=== PATIENT | male | born 1970 | race Caucasian/White ===

== ENCOUNTER 2021-11-09 05:33 | Observation (INO) | payer OTHER ==
[~2021-11-09] VITALS: Ht 182.9 cm; Wt 97.5 kg
[~2021-11-09 05:33] MED LIST: BUSPIRONE; LIPITOR20 MG PO; PAMELOR; VYTORIN
[2021-11-09 05:45] VITALS: BP 161/91
[2021-11-09] MEDS ORDERED: ADDERALL 10 MG10 MG PO (05:48)
[2021-11-09] MEDS ORDERED: NORVASC 2.5 MG2.5 M1 PO (05:48)
[2021-11-09 06:21] LABS: HEMOGLOBIN 14.7 gm/dL (14.0-18.0); NUCLEATED RBCS 0 /100WBC; RDW-CV 12.6 % (10.5-14.5)
[2021-11-09 06:23] LABS: HEMATOCRIT 43.5 % (42.0-52.0); MCHC 33.9 g/dL (28.0-37.0); MCV 85.6 fL (80.0-100.0); MPV 7.1 fl. (7.2-11.1); PLATELET COUNT* 354 thou/uL (150-400); RBC 5.09 mil/uL (4.50-6.00); WBC 13.7 thou/uL (4.0-11.0)
[2021-11-09 06:26] LABS: CREATININE 1.1 mg/dL (0.6-1.3); POTASSIUM 3.6 mmol/L (3.5-5.1)
[2021-11-09 06:30] LABS: ALBUMIN 3.9 g/dL (3.4-5.0); TOTAL BILIRUBIN 0.6 mg/dL (<0.1-1.0); TOTAL PROTEIN 7.3 g/dL (6.4-8.2)
[2021-11-09 07:48] LABS: URINE BILIRUBIN NEGATIVE (Negative); URINE BLOOD NEGATIVE (Negative); URINE CLARITY CLEAR; URINE COLOR YELLOW; URINE GLUCOSE-RANDOM NEGATIVE (Negative); URINE KETONES NEGATIVE (Negative); URINE LEUKOCYTES-REFLEX NEGATIVE (Negative); URINE NITRITE-REFLEX NEGATIVE (Negative); URINE PROTEIN TRACE (Negative); URINE UROBILINOGEN 0.2 E.U./dl (0.2-1.0)
[2021-11-09 07:55] LABS: AMP/METHAMP Negative (Negative); BARBITURATES Negative (Negative); BENZODIAZEPINES Negative (Negative); COCAINE Negative (Negative); METHADONE Negative (Negative); OPIATES POSITIVE (Negative); PCP Negative (Negative); THC POSITIVE (Negative)
[2021-11-09 07:55] LABS: ABSOLUTE BASOPHILS 0.1 thou/uL (0.0-0.2); ABSOLUTE EOSINOPHILS 0.1 thou/uL (0.0-0.7); ABSOLUTE LYMPHOCYTES 1.4 thou/uL (0.8-5.3); ABSOLUTE MONOCYTES 0.7 thou/uL (0.0-1.2); ABSOLUTE NEUTROPHILS 11.4 thou/uL (1.6-8.1)
[2021-11-09 07:56] LABS: PLATELET ESTIMATE INCREASED
[2021-11-09 11:00] VITALS: BP 144/110
--- NOTE | 2021-11-09 11:20 | EKG ---
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: MICHELE : 1970 Requested By: Lacey Blank Order Number: [id number] MD: Jorge Alberto Naranjo Measurements Intervals Adams Rate: 65 P: 68 ME: 114 QRS: 72 QRSD: 117 T: 77 QT: 401 QTc: 417 Interpretive Statements Sinus rhythm Borderline short ME interval Nonspecific intraventricular conduction delay Nonspecific T abnrm, anterolateral leads No previous ECG available for comparison Electronically Signed On 11-09-2021 11:20:10 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
[2021-11-09 16:30] VITALS: BP 145/87
[2021-11-09 17:10] VITALS: BP 167/100
[2021-11-09 20:00] VITALS: BP 181/79
[2021-11-10] VITALS: BP 144/88
[2021-11-10 04:00] VITALS: BP 142/92
[2021-11-10 08:00] VITALS: BP 147/88
[2021-11-10 16:54] VITALS: BP 108/47
[2021-11-10 18:35] VITALS: BP 108/47
== END 2021-11-10 19:17 | disposition home or self-care (01) ==
LOC: M.ERS 05:33 → M.2W 08:26 → M.TBA-ER 08:26 → M.2W 08:26
PROVIDERS: Personal Emergency Response Attendant; ADMIT Internal Medicine; ATTEND Internal Medicine
DX: K56.609 Unspecified intestinal obstruction, unspecified as to partial versus complete obstruction (principal); Z20.822 Contact with and (suspected) exposure to COVID-19; I10 Essential (primary) hypertension; E78.00 Pure hypercholesterolemia, unspecified; Z79.899 Other long term (current) drug therapy